=== PATIENT | female | born 1970 | race Caucasian/White ===

== ENCOUNTER 2021-08-08 10:18 | Outpatient (CLI) | payer BC, SELFPAY ==
--- NOTE | ~2021-08-08 | MM_ITS ---
EXAMINATION: MM scrn ute implant BI w jen HISTORY: Screening mammogram TECHNIQUE: Craniocaudal and mediolateral oblique 3-D tomosynthesis images with implant displacement a nd synthetic 2-D images were generated. Craniocaudal and mediolateral oblique views of the breasts wi thout implant displacement were obtained using full field digital mammography. CAD analysis was submi tted and interpreted. COMPARISON: 02/05/2019, 12/10/2017, 11/12/2016 BREAST PARENCHYMAL COMPOSITION: There are scattered areas of fibroglandular density. FINDINGS: There is no evidence of suspicious mass, calcification, or architectural distortion to sugg est malignancy in either breast. There has been no suspicious interval change. IMPRESSION: 1. No mammographic evidence of malignancy. 2. Recommend routine screening mammography in one year. BI-RADS Category 1: Negative Reviewed, dictated and finalized at location A. 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
== END 2021-08-08 10:19 | disposition home or self-care (01) ==
LOC: ANHIMG 10:21
PROVIDERS: PCP Nurse Practitioner Adult Health; Visit Provider Obstetrics & Gynecology
DX: Z12.31 Encounter for screening mammogram for malignant neoplasm of breast (principal)
CPT/HCPCS: 77063; 77067

== ENCOUNTER 2023-01-23 15:20 | Outpatient (CLI) | payer BC, SELFPAY ==
--- NOTE | ~2023-01-23 | MM_ITS ---
EXAMINATION: MM scrn ute implant BI w jen HISTORY: Screening mammogram TECHNIQUE: Craniocaudal and mediolateral oblique 3-D tomosynthesis images with implant displacement a nd synthetic 2-D images were generated. Craniocaudal and mediolateral oblique views of the breasts wi thout implant displacement were obtained using full field digital mammography. CAD analysis was submi tted and interpreted. COMPARISON: 08/08/2021, 02/05/2019, 12/10/2017 bilateral screening mammogram examinations BREAST PARENCHYMAL COMPOSITION: There are scattered areas of fibroglandular density. FINDINGS: Status post bilateral augmentation mammoplasty. There is a There are bladder is unremarkable There is no evidence of suspicious mass, calcification, or architec tural distortion to suggest malignancy in either breast. There has been no suspicious interval change . IMPRESSION: 1. No mammographic evidence of malignancy. 2. Recommend routine screening mammography in one year. BI-RADS Category 1: Negative Reviewed, dictated and finalized at location A.
== END 2023-01-23 15:21 | disposition home or self-care (01) ==
PROVIDERS: PCP Nurse Practitioner Adult Health; Visit Provider Obstetrics & Gynecology
DX: Z12.31 Encounter for screening mammogram for malignant neoplasm of breast (principal)
CPT/HCPCS: 77063; 77067

== ENCOUNTER 2023-02-03 10:16 | Outpatient (CLI) | payer BC, SELFPAY ==
[2023-02-03 19:17] LABS: Hemoglobin 14.1 g/dL (12.0-15.0); Mean Corpuscular HGB Conc 31.3 g/dl (32-36); Mean Corpuscular Hemoglobin 30.3 pg (26-34); Mean Corpuscular Volume 96.6 fl (80-100); Mean Platelet Volume 10.2 fl (7.4-10.4); Platelet Count Result 335 k/mm3 (150-375); Red Blood Count 4.66 M/mm3 (4.2-5.4); Red Cell Distribution Width 12.4 % (11.5-14.5)
[2023-02-03 19:55] LABS: Appearance Urine Turbid (Clear); Bacteria Urine 4+ /hpf; Bilirubin Urine Negative (Negative); Blood Urine Negative (Negative); Color Urine Yellow (Yellow); Glucose Urine UA Negative (Negative); Ketones Urine Negative (Negative); Leukocyte Esterase Ur 3+ LEU/UL (Negative); Nitrate Urine Positive (Negative); Non Pathogenic Casts 0-2; Protein Urine Negative (Negative); Specific Grav Ur 1.019 (1.001-1.035); Squamous Epithelial Cell Urine None seen /hpf (Few); Urobilinogen Urine 0.2 mg/dL (<2.0); WBC Urine >100 /hpf; pH Urine 7.5 (5.0-9.0)
[2023-02-03 20:04] LABS: Add Urine Microscopic? YES
[2023-02-03 21:11] LABS: Alanine Aminotransferase 19 U/L (6-35); Albumin Level 4.5 g/dL (3.5-5.1); Alkaline Phosphatase 69 U/L (38-126); Anion Gap 9 mmol/L (8-16); Aspartate Amino Transferase 47 U/L (14-36); Bilirubin,Total 0.7 mg/dL (0.2-1.3); Blood Urea Nitrogen 14 mg/dL (7-17); Calcium 9.5 mg/dL (8.4-10.2); Carbon Dioxide 25 mmol/L (22-30); Chloride 104 mmol/L (98-107); Cholesterol 163 mg/dL (0-200); Estimated Glomerular Filt Rate > 60; Glucose 90 mg/dL (65-110); HDL Direct 32 mg/dL; Sodium 138 mmol/L (137-145); Triglycerides 117 mg/dL (<150)
[2023-02-03 21:18] LABS: Vitamin D 25 Hydroxy 77.4 ng/mL
[2023-02-03 21:22] LABS: LDL Cholesterol Direct 92 mg/dL
[2023-02-03 21:38] LABS: Thyroid Stimulating Hormone 0.017 uIU/mL (0.465-4.680)
== END 2023-02-03 10:17 | disposition home or self-care (01) ==
PROVIDERS: PCP Nurse Practitioner Adult Health; Visit Provider Nurse Practitioner Adult Health
DX: R39.9 Unspecified symptoms and signs involving the genitourinary system (principal); Z13.9 Encounter for screening, unspecified; E55.9 Vitamin D deficiency, unspecified
CPT/HCPCS: 36415; 80053; 80061; 81001; 82306; 84443; 85027; 87077; 87086; 87186

== ENCOUNTER 2023-06-30 01:35 | Day surgery (SDC) | payer BC, SELFPAY ==
[2023-06-03 08:30] VITALS: BMI 25.7
--- NOTE | 2023-06-27 09:04 | SUR.PREOP ---
Patient called regarding upcoming procedure. Reviewed preop instructions, appointment times, and procedure prep.
[2023-06-30 07:28] VITALS: BP 118/76; PULSE 78; RESP 20; TEMP 36.6; O2SAT 98; BMI 25.5
[2023-06-30] MEDS: LACTATED RINGERS 1,000 ML 150 ML IV CONT (07:30)
--- NOTE | 2023-06-30 08:02 | WPDANESEPPF ---
Anes - Initial Pre Proc Eval Procedure: Operation Date: 06/30/23 08:30 Proposed Procedures p Screening Colonoscopy - Danie Farley MD Date/Time: 06/30/23 08:02 Surgeon: Danie Farley MD Pre Op Diagnosis: neoplasm screening Patient Data Age: 53 Gender: F Height: 1.65 m Weight: 69.6 kg Last Vital Signs Temp 36.6 C 06/30/23 07:28 Pulse 78 06/30/23 07:28 Resp 20 06/30/23 07:28 BP 118/76 06/30/23 07:28 Pulse Ox 98 06/30/23 07:28 O2 Del Method Room Air 06/30/23 07:28 Allergies Allergy/AdvReac Type Severity Reaction Status Date / Time Cephalosporins Allergy Mild SEVERE Verified 06/30/23 07:26 VOMITING ciprofloxacin Allergy Mild Blisters Verified 06/30/23 07:26 morphine Allergy Mild STATES Verified 06/30/23 07:26 MOTHER HAS SEVERE HALLUCINATIONS, SEVERE N/V oxycodone Allergy Mild Hives Verified 06/30/23 07:26 Quinolones Allergy Mild BLISTERY Verified 06/30/23 07:26 RASH cephalexin AdvReac Vomiting Verified 06/30/23 07:26 Home Medications Medication Instructions Recorded Confirmed Type cholecalciferol (vitamin D3) 250 250 mcg PO DAILY 04/18/21 06/03/23 History mcg (10,000 unit) capsule esterified estrogens 0.625 mg 2 mg PO DAILY 04/18/21 06/03/23 History tablet progesterone micronized 100 mg 300 mg PO QHS 04/18/21 06/03/23 History capsule spironolactone 50 mg tablet 50 mg PO DAILY 04/18/21 06/03/23 History thyroid (pork) 120 mg tablet See Rx Instructions PO DAILY 04/18/21 06/03/23 History ubrogepant 100 mg tablet (Ubrelvy) 100 mg PO ONCE 06/03/22 06/03/23 History Testosterone Cream 60 mg topical DAILY 02/03/23 History escitalopram oxalate 10 mg tablet 10 mg PO DAILY 02/03/23 06/03/23 History (Lexapro) sodium,potassium,mag sulfates 17.5 See Rx Instructions PO .COMPLEX 05/08/23 06/03/23 Rx gram-3.13 gram-1.6 gram oral soln #354 mL (Suprep Bowel Prep Kit) Patient hx anesthesia problems: other (slow to awaken) Family hx anesthesia problems: none Results Review: All pre-operative results and documents have been reviewed as part of the pre-operative evaluation. [facility] Past Medical History Medical History Asthma Fibromyalgia Interstitial cystitis Migraines Vaginal delivery x 2 Surgical History Surgical History History of bladder surgery History of breast augmentation History of elbow surgery History of laparoscopy History of total hysterectomy with bilateral salpingo-oophorectomy (BSO) Family History Family History Mother Hypertension Father Family history of hypercholesterolemia Hypertension Sibling Asthma Son Asthma Depression Daughter Depression Grandparent Malignant neoplasm of prostate Stomach cancer Other Family history of arthritis Family history of hearing loss Family history of hepatitis Family history of malignant neoplasm of ovary Family history of osteoporosis Family history of thyroid disease Social History Social History Smoking status: Never smoker Alcohol intake: never Substance use type: does not use Lack of Transportation: No Lack of Food: Never True Concerned About Future Housing: No Difficulty Paying Gas/Electric Bills: No Difficulty Paying for Meds: No Currently Unemployed: No Education: High School Diploma/GED Difficulty w/ Childcare or Family Care: No Living arrangements: with family Occupation/Education: occupation 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
--- NOTE | 2023-06-30 08:14 | PM.HPGS ---
History of Present Illness History of Present Illness Consent: Risks, benefits, and alternatives have been discussed and questions answered. Patient agrees to proceed with procedure. Chief complaint: neoplasm screening Narrative: oJan Cruz is a 53 year old female Presents for screening colonoscopy. Patient's current weight appetite and bowel movements are normal. Patient denies abdominal pain. She has had no bleeding. Family history is significant that her father had colon polyps. Review of Systems Review of Systems: Review of systems noncontributory. PMFSH Past Medical History Medical History Asthma Fibromyalgia Interstitial cystitis Migraines Vaginal delivery x 2 Surgical History Surgical History History of bladder surgery History of breast augmentation History of elbow surgery History of laparoscopy History of total hysterectomy with bilateral salpingo-oophorectomy (BSO) Family History Family History Mother Hypertension Father Family history of hypercholesterolemia Hypertension Sibling Asthma Son Asthma Depression Daughter Depression Grandparent Malignant neoplasm of prostate Stomach cancer Other Family history of arthritis Family history of hearing loss Family history of hepatitis Family history of malignant neoplasm of ovary Family history of osteoporosis Family history of thyroid disease Social History Social History Smoking status: Never smoker Alcohol intake: never Substance use type: does not use Lack of Transportation: No Lack of Food: Never True Concerned About Future Housing: No Difficulty Paying Gas/Electric Bills: No Difficulty Paying for Meds: No Currently Unemployed: No Education: High School Diploma/GED Difficulty w/ Childcare or Family Care: No Living arrangements: with family Occupation/Education: occupation 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 Spiritual care concerns: No Meds Home Medications and Allergies Home Medications Medication Instructions Recorded Confirmed Type cholecalciferol (vitamin D3) 250 250 mcg PO DAILY 04/18/21 06/03/23 History mcg (10,000 unit) capsule esterified estrogens 0.625 mg 2 mg PO DAILY 04/18/21 06/03/23 History tablet progesterone micronized 100 mg 300 mg PO QHS 04/18/21 06/03/23 History capsule spironolactone 50 mg tablet 50 mg PO DAILY 04/18/21 06/03/23 History thyroid (pork) 120 mg tablet See Rx Instructions PO DAILY 04/18/21 06/03/23 History ubrogepant 100 mg tablet (Ubrelvy) 100 mg PO ONCE 06/03/22 06/03/23 History Testosterone Cream 60 mg topical DAILY 02/03/23 History escitalopram oxalate 10 mg tablet 10 mg PO DAILY 02/03/23 06/03/23 History (Lexapro) sodium,potassium,mag sulfates 17.5 See Rx Instructions PO .COMPLEX 05/08/23 06/03/23 Rx gram-3.13 gram-1.6 gram oral soln #354 mL (Suprep Bowel Prep Kit) Allergies Allergy/AdvReac Type Severity Reaction Status Date / Time Cephalosporins Allergy Mild SEVERE Verified 06/30/23 07:26 VOMITING ciprofloxacin Allergy Mild Blisters Verified 06/30/23 07:26 morphine Allergy Mild STATES Verified 06/30/23 07:26 MOTHER HAS SEVERE HALLUCINATIONS, SEVERE N/V oxycodone Allergy Mild Hives Verified 06/30/23 07:26 Quinolones Allergy Mild BLISTERY Verified 06/30/23 07:26 RASH cephalexin AdvReac Vomiting Verified 06/30/23 07:26 Vital Signs Vital Signs - 24 hr 06/30/23 07:28 Temperature 97.8 F Pulse Rate 78 Respiratory Rate 20 Blood Pressure 118/76 Pulse Oximetry 98 Oxygen Delivery Room Air Exam Narrative: Physical exam reveals patient to be alert. Vital signs stable. HEENT exam is unremarkable. Lia
[2023-06-30 08:37] VITALS: BP 107/53; PULSE 70; RESP 20; O2SAT 97
[2023-06-30 08:47] VITALS: BP 108/71; PULSE 65; RESP 22; O2SAT 98
[2023-06-30 08:57] VITALS: BP 108/59; PULSE 62; RESP 17; O2SAT 100
== END 2023-06-30 09:13 | disposition home or self-care (01) ==
PROVIDERS: PCP Nurse Practitioner Adult Health; Visit Provider Internal Medicine Gastroenterology
PROC: 0DJD8ZZ Inspection of Lower Intestinal Tract, Via Natural or Artificial Opening Endoscopic (ICD-10-PCS; CPT 45378; principal; 2023-06-30 08:30)
DX: Z12.11 Encounter for screening for malignant neoplasm of colon (principal); K64.8 Other hemorrhoids; Z83.719 Family history of colon polyps, unspecified
CPT/HCPCS: 45378; J2704; J7120

== ENCOUNTER 2024-02-17 09:06 | Outpatient (CLI) | payer BC, SELFPAY ==
[2024-02-17 18:57] LABS: Hematocrit 44.1 % (37.0-47.0); Hemoglobin 14.2 g/dL (12.0-15.0); Mean Corpuscular HGB Conc 32.2 g/dl (32-36); Mean Corpuscular Hemoglobin 30.4 pg (26-34); Mean Corpuscular Volume 94.4 fl (80-100); Mean Platelet Volume 9.9 fl (7.4-10.4); Platelet Count Result 359 k/mm3 (150-375); Red Blood Count 4.67 M/mm3 (4.2-5.4); Red Cell Distribution Width 12.3 % (11.5-14.5); White Blood Count 7.5 K/mm3 (4.5-10.0)
[2024-02-17 19:30] LABS: Alanine Aminotransferase 32 U/L (6-35); Albumin Level 4.5 g/dL (3.5-5.1); Alkaline Phosphatase 79 U/L (38-126); Anion Gap 12 mmol/L (4-12); Aspartate Amino Transferase 83 U/L (14-36); Bilirubin,Total 0.6 mg/dL (0.2-1.3); Blood Urea Nitrogen 14 mg/dL (7-17); Calcium 9.1 mg/dL (8.4-10.2); Carbon Dioxide 22 mmol/L (22-30); Chloride 104 mmol/L (98-107); Cholesterol 172 mg/dL (0-200); Estimated Glomerular Filt Rate > 60; Glucose 94 mg/dL (65-110); HDL Direct 37 mg/dL; Potassium 3.9 mmol/L (3.4-5.0); Sodium 138 mmol/L (137-145); Triglycerides 115 mg/dL (<150)
[2024-02-17 19:41] LABS: LDL Cholesterol Direct 107 mg/dL
[2024-02-17 19:50] LABS: Vitamin D 25 Hydroxy 65.3 ng/mL
[2024-02-17 19:59] LABS: Thyroid Stimulating Hormone 0.507 uIU/mL (0.465-4.680)
== END 2024-02-17 09:07 | disposition home or self-care (01) ==
PROVIDERS: PCP Nurse Practitioner Adult Health; Visit Provider Nurse Practitioner Adult Health
DX: Z13.9 Encounter for screening, unspecified (principal); E55.9 Vitamin D deficiency, unspecified
CPT/HCPCS: 36415; 80053; 80061; 82306; 84443; 85027

== ENCOUNTER 2024-11-30 11:40 | Outpatient (CLI) | payer BC, SELFPAY ==
--- NOTE | ~2024-11-30 | MM_ITS ---
EXAMINATION: MM scrn ute implant BI w jen HISTORY: Screening mammogram TECHNIQUE: Craniocaudal and mediolateral oblique 3-D tomosynthesis images with implant displacement a nd synthetic 2-D images were generated. Craniocaudal and mediolateral oblique views of the breasts wi thout implant displacement were obtained using full field digital mammography. CAD analysis was submi tted and interpreted. COMPARISON: Comparison to multiple prior studies sequentially, with oldest reviewed study dated 09/07. BREAST PARENCHYMAL COMPOSITION: Not dense: There are scattered areas of fibroglandular density. FINDINGS: There is no evidence of suspicious mass, calcification, or architectural distortion to sugg est malignancy in either breast. There has been no suspicious interval change. IMPRESSION: 1. No mammographic evidence of malignancy. 2. Recommend routine screening mammography in one year. BI-RADS Category 1: Negative Reviewed, dictated and finalized at location B.
--- OUTSIDE RECORDS SUMMARY | 2024-11-30 11:45 | XMS_ITS | Encounter Summary ---
Author Organization [facility] Address [address] [place] [address] Care Team Providers Care Equity Holder Name Role Phone Bryan Whittaker MD Unavailable [phone] Dayna Skaggs APRN-DIRECTOR OF IN SERVICE EDUCATION Primary Care Provider + Encounter Details Date Type Department Care Team (Late st Contact Info) Description 05/30/2022 Lab Requisition [facility] [address] [place] [id number] [place] [address] Social History Tobacco Use Types Packs/Day Years Used Date Smoking Tobacco: Never Assessed Comments Unknown Sex and Gender Information Value Date Recorded Sex Assigned at Not on file Legal Sex Female 12:10 PM FACSIMILE OPERATOR Gender Identity Not on file Sexual Orientation Not on file documented as of this encounter Plan of Treatment Not on file documented as of this encounter Procedures Procedure Name Priority Date/Time Associated Diagnosis Comments DERMATOPATHOLOGY Routine 05/29/2022 12:0 0 AM FACSIMILE OPERATOR documented in this encounter Results * DERMATOPATHOLOGY (05/29/2022 12:00 AM FACSIMILE OPERATOR) Case Report Dermatopathology Report Case: [id number] Authorizing Provider: Lambert Herrera MD Collected: 05/29/2022 12:00 AM Ordering Location: [facility] Received: 05/30/2022 01:35 PM Pathologist: Starr Villafana MD Specimen: Skin, right cheek 1:08 PM [facility] Final Diagnosis Specimen A. SKIN, right cheek: VERRUCA VULGARIS WITH ASSOCIATED CHANGES OF PRURIGO NODULARIS (B07.8) 1:08 PM [facility] at [address]8 FACSIMILE OPERATOR Clinical History R/O BCC, HAK, AK, SCC, ISK 1:08 PM [facility] Gross Description Specimen A: Received is one formalin filled container labeled with the patient's name and designated right cheek. The specimen consists of a shave biopsy measuring [id number]. Jar 0. 1:08 PM [facility] Microscopic Description Specimen A. SKIN, right cheek: There is digitated epidermal hyperplasia, hypergranulosis, vacuolated granular layer cells, and compact hyperorthokeratosis . There is a dome-shaped portion of skin with psoriasiform epidermal hyperplasia, compact hyperkeratosis, and fibrosis of the papillary dermis associated with a superficial perivascular lymphohistiocytic infiltrate. 1:08 PM [facility] Disclaimer An external and internal positive and negative controls are appropriate for the histochemical, immunohistochemical and immunofluorescence stain(s) in this case (if any), except where stated explicitly. The performance characteristics of the stain(s) cited in this report were developed and its performance characteristic determined by the Dermatopathology Laboratory at [facility], directed by Dr. Nurys Villafana. These tests need not be, and therefore are not, approved by the [place] Food and Drug Administration. The tests are used for clinical purposes. Billing Codes Specimen Charges Stain Charges 44831 1 1:08 PM [facility] Embedded Images 1:08 PM [facility] Pathology/Cytolog y TISSUE SPECIMEN FROM SKIN / Unknown 05/29/2022 05/30/2022 1:35 PM FACSIMILE OPERATOR us Lambert Herrera MD LAB - PATHOLOGY/CYTOLOGY ORD ERABLES Final Result DERMATOPATHOLOGY LABORATORY [facility] - Department of Dermatology [address], [address] [phone] documented in this encounter Visit Diagnoses Not on filedocumented in this encounter Care Teams Equity Holder Relationship Specialty Start Date End Date Dayna Skaggs APRN-SAVAGE [address] [place] [address] [address] [place] [id number] PCP - General Nurse Practitioner 02/25/22 Bryan Whittaker MD Neurology 04/04/11 documented as of this encounter
--- OUTSIDE RECORDS SUMMARY | 2024-11-30 11:45 | XMS_ITS | Clinical Summary ---
Author Organization [facility] Facility Address [address] [place] [id number] Care Team Providers Care Media Technician Name Role Phone Unavailable Primary Care Provider Unavailabl e Medications spironolactone (ALDACTONE) 100 MG tablet TAKE 1 TABLET BY MOUTH ONCE DAILY DIRECTED 9 Active gentamicin-pred nisoLONE (Pred-G) 0.3-1 % ophthalmic drops Administer 1 drop into the right eye 3 (three) times a day 30 mL 1 2 Active gabapentin (Neurontin) 100 MG capsuleIndicati ons:Neuralgia Take 1 capsule (100 mg total) by mouth 1 (one) time each day 30 capsule 5 2 Active colchicine 0.6 MG tabletIndicatio ns:Pain in left thumb Take 2 tablets initially, the one tablet every 2 hours, max of 6 tablets total. 6 tablet 3 Active escitalopram (Lexapro) 10 MG tabletIndicatio ns:Anxiety disorder, not otherwise specified Take 1 tablet by mouth daily 30 tablet 5 3 Active Social History Tobacco Use Types Packs/Day Years Used Date Smoking Tobacco: Never Assessed Comments Unknown Sex and Gender Information Value Date Recorded Sex Assigned at Not on file Legal Sex Female 6:09 PM EDT Gender Identity Not on file Sexual Orientation Not on file Plan of Treatment Health Maintenance Due Date Last Done Comments Breast Cancer Screening 1970 Hepatitis B Vaccine (1 of 3 - 19+ 3-dose series) 01/19 Pneumococcal Vaccine: 50+ Years (1 of 2 - PCV) 989 Colorectal Cancer Screening: Annual FOBT 2019 Colorectal Cancer Screening: Colonoscopy 2019 Colorectal Cancer Screening: Sigmoidoscopy 2019 Influenza Vaccine (Season Ended) 2025
--- OUTSIDE RECORDS SUMMARY | 2024-11-30 11:46 | XMS_ITS | Clinical Summary ---
Author Organization [facility] Address [address] [place] [address] Care Team Providers Care Culinary Director Name Role Phone Cherie Noguera MD Primary Care Provider [phone] Allergies Active Allergy Reactions Criticality Noted Date Comments Cephalexin Nausea & Vomiting Low 03/28/2022 Only oral kelfex Ciprofloxacin Rash,Nausea & Vomiting Medium Reaction: Rash, , Codeine Headache Low 03/28/2022 Oxycodone Itching,Rash Medium Reaction: Rash, Oxycodone-Acetaminophen Unknown Medications spironolactone (ALDACTONE) 100 mg tablet 50 mg. 9 Active TESTOSTERONE MICRONIZED, BULK, MISC Apply topically daily 1 8 Active estrogen,carlos/ me-testosterone (ESTROGENS-METH YLTESTOSTERONE ORAL) Take 2 mg by mouth Active progesterone (PROMETRIUM) 100 mg capsule Take 300 mg by mouth daily Active cholecalciferol (VITAMIN D-3) 32750 unit capsule Take 5,000 Units by mouth daily Active thyroid (ARMOUR THYROID) 90 mg tablet Take 90 mg by mouth daily Active ubrogepant (UBRELVY) 100 mg tablet Take 100 mg by mouth as needed for migraine May repeat dose once in 2 hours if no relief. Do not exceed 2 doses in 24 hours. Active ascorbic acid (VITAMIN C) 500 mg tablet,chewable Take 1 tablet/chew tab (500 mg total) by mouth 2 (two) times a day 60 tablet/chew tab 2 Active HYDROcodone-leonard taminophen (NORCO) 5-325 mg per tabletIndicatio ns:Pain Take 1 tablet by mouth every 6 (six) hours as needed for pain 15 tablet 2 Active Additional Information Patient not taking.Reported on 04/19/2022 ondansetron (ZOFRAN) 4 mg tabletIndicatio ns:Prevention of Post-Operative Nausea and Vomiting Take 1 tablet (4 mg total) by mouth every 6 (six) hours as needed for nausea or vomiting 20 tablet 1 2 Active Additional Information Patient not taking.Reported on 04/19/2022 estradioL (ESTRACE) 0.01 % (0.1 mg/gram) vaginal cream estradiol 0 Active progesterone 100 mg vaginal suppository progesterone 0 Active cholecalciferol (VITAMIN D-3) 400 unit capsule Vitamin D3 5000 units daily 0 Active gabapentin (NEURONTIN) 100 mg capsule Take 100 mg by mouth daily 2 Active Active Problems Problem Noted Date Diagnosed Date Right lateral epicondylitis 03/16/2022 Overview (03/16/2022): Added automatically from request for surgery [id number] Cubital tunnel syndrome on right 03/16/2022 Overview (03/16/2022): Added automatically from request for surgery [id number] Medial epicondylitis of right elbow 03/16/2022 Overview (03/16/2022): Added automatically from request for surgery [id number] Itch 10/05/2010 Surgical History Surgery Date Site/Laterality Comments AUGMENTATION MAMMOPLASTY 1988 Breast Augmentation AUGMENTATION MAMMOPLASTY 2007 Breast Augmentation BLADDER PLICATION bladder plication HYSTERECTOMY 2005 Hysterectomy BLADDER SURGERY EXPLORATORY LAPAROTOMY endometriosis Medical History Medical History Date Comments Hx Other Medical Abnormal Heartb eat Hx Other Medical Neuropathy Endometritis Endometriosis Hx Other Medical Interstitial cy stitis Hx Other Medical Headache, migra ine Disorder of thyroid Thyroid dise ase Osteoarthritis Osteoarthritis Asthma Asthma Depression Depression Gastroesophageal reflux disease GERD Anemia Anemia Hx Other Medical 2004 abdominal expl oratory PONV (postoperative nausea and vomiting) Motion sickness Headache Hypothyroidism Delayed emergence from general anesthesia Family History Medical History Relation Name Comments Cancer Other 1 Family history of Cancer; Heart disease Other 2 Family history of Heart disease; Other Other 3 Family history of lung problems ; Hypertension Other 4 Family history of Hypertension; Arthritis Other 5 Family history of Arthritis; Blood Clot Other 6 Family history of Blood clots; Relation Name Status Comments Other 1 Other 2 Other 3 Other 4 Other 5 Other 6 Social History Tobacco Use Types Packs/Day Years Used Date Smoking Tobacco: Never Smokeless Tobacco: Never Tobacco Cessation:Counseling Given: Not Answered Alcohol Use Standard Drinks/Week Comments Yes 0 (1 standard drink = 0.6 oz pur e alcohol) AUDIT-C Answer Date Recorded Frequency of Alcohol Consumption Not on file 03/28/2022 Q2: How many drinks containi ng alcohol do you have on a typical day when you are drinking? Patient does not drink Frequency of Binge Drinking Not on file 03/14 Comments No Sex and Gender Information Value Date Recorded Sex Assigned at Not on file Legal Sex Female 12:21 AM COMMUNITY MENTAL HEALTH WORKER Gender Identity Not on file Sexual Orientation Not on file Obstetrics History Last Filed Vital Signs Vital Sign Reading Time Taken Comments Blood Pressure 144/94 06/20/2022 8:35 AM COMMUNITY MENTAL HEALTH WORKER Pulse 71 06/20/2022 8:35 AM COMMUNITY MENTAL HEALTH WORKER Temperature 36.1 C (97 F) 04/04/2022 2:16 PM CDT Respiratory Rate 18 04/04/2022 3:28 PM CDT Oxygen Saturation 98% 04/04/2022 3:28 PM CDT Inhaled Oxygen Concentration - - Weight 76.4 kg (168 lb 8 oz) 06/20/2022 8:35 AM COMMUNITY MENTAL HEALTH WORKER Height 165.1 cm (5' 5 ) 06/20/2022 8:35 AM COMMUNITY MENTAL HEALTH WORKER Body Mass Index 28.04 06/20/2022 8:35 AM COMMUNITY MENTAL HEALTH WORKER Plan of Treatment Health Maintenance Due Date Last Done Comments Breast Cancer Screening-Mammogram 1970 Colon Cancer Screening-Colonoscopy 1970 Depression Screening 1970 Hepatitis C Screening 1970 DTaP/Tdap/Td Vaccine (1 - Tdap) 1981 Hepatitis B Screening 01/20/1988 Regular Well Visit/Exam 18-64 01/20/1988 Zoster Vaccine (1 of 2) 01/20/2020 Influenza Vaccine (#1) 2024 Pneumococcal vaccine <65 Aged Out No longer eligible based on patient's age to complete this topic Insurance [employer]M ACCESS CHOICE [id number] CHO[facility] PLUS ANTHEM ACCESS CHOICE [employer] ACCESS CHOICE Care Teams Culinary Director Relationship Specialty Start Date End Date Cherie Noguera MD [address] [place] [address] [place] [address] PCP - General Family Medicine 12/05/20
--- OUTSIDE RECORDS SUMMARY | 2024-11-30 11:46 | XMS_ITS | Referral Summary ---
Author Organization [facility] Address [address] [place] [address] Care Team Providers Care Realty Loan Specialist Name Role Phone Cherie Noguera MD Primary Care Provider [phone]- [phone] Allergies Active Allergy Reactions Criticality Noted Date [...] by mouth daily Active cholecalciferol (VITAMIN D-3) 56460 unit capsule Take 5,000 Units by mouth [...] (03/16/2022): Added automatically from request for surgery [id number] Cubital tunnel syndrome on right 03/16/2022 Overview (03/16/2022): Added automatically from request for surgery [id number] Medial epicondylitis of right elbow 03/16/2022 Overview (03/16/2022): Added automatically from request for surgery [id number] Itch 10/05/2010 Social History Tobacco Use Types Packs/Day Years [...] you are drinking? Patient does not drink 2 Frequency of Binge Drinking Not on file 03/14 Comments No Sex and Gender Information Value Date Recorded Sex Assigned at Not on file Legal Sex Female 12:21 AM RESIDENTIAL CONCIERGE Gender Identity Not on file Sexual Orientation Not on file Last Filed Vital Signs Vital Sign Reading Time Taken Comments Blood Pressure 144/94 06/20/2022 8:35 AM RESIDENTIAL CONCIERGE Pulse 71 06/20/2022 8:35 AM RESIDENTIAL CONCIERGE Temperature 36.1 C (97 F) 04/04/2022 2:16 PM CDT Respiratory Rate 18 04/04/2022 3:28 PM CDT Oxygen Saturation 98% 04/04/2022 3:28 PM CDT Inhaled Oxygen Concentration - - Weight 76.4 kg (168 lb 8 oz) 06/20/2022 8:35 AM RESIDENTIAL CONCIERGE Height 165.1 cm (5' 5 ) 06/20/2022 8:35 AM RESIDENTIAL CONCIERGE Body Mass Index 28.04 06/20/2022 8:35 AM RESIDENTIAL CONCIERGE Plan of Treatment Not on file Insurance [facility] [employer] CHOICE CHOICE PLUS [facility] H[facility]/PPO Address: [address] [address] [place] [address] [employer]M ACCESS CHOICE AN[employer]M ACCESS CHOICE Care Teams Realty Loan Specialist Relationship Specialty Start Date End Date Cherie Noguera MD [address] [place] [address] [place] [address] PCP - General Family Medicine 12/05/20
--- OUTSIDE RECORDS SUMMARY | 2024-11-30 11:46 | XMS_ITS | Clinical Summary ---
Author Organization [facility] Address [address] [place] [address] Care Team Providers Care Rn Night Name Role Phone Bryan Whittaker MD Unavailable [phone] Dayna Skaggs APRN-[facility] Primary Care Provider + Source Comments [facility],non-owned Affiliates and Associated Physician Practices is amultiple site organization consisting of ambulatory clinics and hospital sitesin [place], [place], [place] and [place]. This disclosure is being madepursuant to the Care Everywhere program and may not contain all information available regarding this patient. Last updated 18.[facility] Allergies Active Allergy Reactions Criticality Noted Date Comments Ciprofloxacin 04/04/2011 Oxycodone-Acetaminophen 04/04/2011 Medications * Be aware that medications may not be up to date on this document. Alwaysverify current medications with the patient. Citalopram Hydrobromide (CELEXA PO) Take 25 mg by mouth at bedtime. Active Albuterol Sulfate (VENTOLIN HFA IN) Inhale 2 Puffs by mouth as needed. Active cetirizine (ZYRTEC) 10 MG tablet Take 10 mg by mouth at bedtime. Active Vitamin D3 2000 UNIT CAPS Take by mouth at bedtime. Active rizatriptan (MAXALT) 10 MG tablet Take 1 Tab by mouth once as needed (take one tablet at onset of headache may repeat after 2 hours up to 30 mg total per 24 hours). 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 Gender Identity Not on file Sexual Orientation Not on file Last Filed Vital Signs Vital Sign Reading Time Taken Comments Blood Pressure 112/82 04/04/2011 12:47 PM CDT Pulse 80 04/04/2011 12:47 PM CDT Temperature - - Respiratory Rate 12 04/04/2011 12:47 PM CDT Oxygen Saturation - - Inhaled Oxygen Concentration - - Weight - - Height - - Body Mass Index - - Plan of Treatment Health Maintenance Due Date Last Done Comments COLOGUARD (AGES 45-75) - COL ON CA SCREENING 1970 COLON MONITORING 1970 COLONOSCOPY - COLON CA SCREENING 1970 CT COLONOGRAPHY - COLON CA SCREENING 1970 Colorectal Cancer Screening 1970 FIT - COLON CA SCREENING 1970 FLEX SIG - COLON CA SCREENING 1970 LIPID TESTING 1970 MAMMOGRAM 1970 PAP SMEAR 1970 HIV SCREENING 1985 HEPATITIS C SCREENING 01/15/1988 DTAP/TDAP/TD VACCINES (1 - Tdap) 1989 HEPATITIS B VACCINE (1 of 3 - 19+ 3-dose series) 1989 PNEUMOCOCCAL VACCINE 50+ (1 of 1 - PCV) 01/20/2020 ZOSTER VACCINE (1 of 2) 01/20/2020 COVID-19 VACCINE (1 - 2023-2 5 season) 2024 DEPRESSION SCREENING 07/14/2024 INFLUENZA VACCINE (Season Ended) 2025 HIB VACCINE Aged Out No longer eligi ble based on patient's age to complete this topic HPV VACCINE Aged Out No longer eligi ble based on patient's age to complete this topic MENINGOCOCCAL (Group B) VACC INE SHARED DECISION-MAKING Aged Out No longer eligibl e based on patient's age to complete this topic MENINGOCOCCAL GROUPS A/C/Y/W VACCINE Aged Out No longer eligible b ased on patient's age to complete this topic Insurance /BLUE BLUE CROSS BLUE [facility] ANTHEM ANTHEM Care Teams Rn Night Relationship Specialty Start Date End Date Dayna Skaggs APRN-WOODWORKING MACHINE SETTER [address] [place] [address] PCP - General Nurse Practitioner 02/25/22 Bryan Whittaker MD Neurology 04/04/11
== END 2024-11-30 11:41 | disposition home or self-care (01) ==
LOC: CHSIMG 11:42
PROVIDERS: PCP Nurse Practitioner Adult Health; Visit Provider Nurse Practitioner Adult Health
DX: Z12.31 Encounter for screening mammogram for malignant neoplasm of breast (principal)
CPT/HCPCS: 77063; 77067

== ENCOUNTER 2025-02-26 07:41 | Outpatient (CLI) | payer BC, SELFPAY ==
--- OUTSIDE RECORDS SUMMARY | 2025-02-26 07:46 | XMS_ITS | Clinical Summary ---
Author Organization [facility] Address [address] [place] [address] Phone Care Team Providers Care Solar Design Engineer Name Role Phone Provider, None Primary Care Provider Unavailabl e Social History Tobacco Use Types Packs/Day Years Used Date Smoking Tobacco: Never Assessed Comments Unknown Sex and Gender Information Value Date Recorded Sex Assigned at Not on file Legal Sex Female 11:21 PM CDT Gender Identity Not on file Sexual Orientation Not on file Plan of Treatment Health Maintenance Due Date Last Done Comments Hepatitis C Virus (HCV) Screening 1970 TdaP Immunization 1970 Hepatitis B Immunization (1 of 3 - 19+ 3-dose series) 1989 Pap Smear 1991 Cervical Cancer Screening (CCS) 01/20/2000 HPV/Cotest 01/20/2000 Cologuard 2015 Colonoscopy 2015 Colorectal Cancer Screening 2015 Immunochemical Fecal Occult Blood 2015 Pneumococcal Immunization (5 0+ years) (1 of 1 - PCV) 01/20/2020 Zoster Immunization (1 of 2) 01/20/2020 SARS-COV-2 Immunization (3 - 2023- season) 2024 08/24/2020, 07/27/2020 Influenza Immunization (#1) 2025 Respiratory Syncytial Virus (RSV) Immunization (Adult) (1 - 1-dose 75+ series) 2045 Human Papillomavirus (HPV) Immunization Aged Out No longer eligible b ased on patient's age to complete this topic Meningococcal Immunization (ACWY) Aged Out No longer eligible b ased on patient's age to complete this topic Rotavirus Immunization Aged Out No lo nger eligible based on patient's age to complete this topic Care Teams Solar Design Engineer Relationship Specialty Start Date End Date Provider, None DILEEP PCP - General 01/05/18
--- OUTSIDE RECORDS SUMMARY | 2025-02-26 07:46 | XMS_ITS | Encounter Summary ---
Author Organization [facility] Address [address] [place] [address] Phone Care Team Providers Care Reinforcing Steel Erector Name Role Phone Unavailable Primary Care Provider Unavailabl e Encounter Details Date Type Department Care Team (Late st Contact Info) Description 02/25/2025 Orders Only [facility] [address] [place] [address] Mando Jefferson MD [address] [place] [address] Urinary tract infectious disease (Primary Dx) Social History Tobacco Use Types Packs/Day Years Used Date Smoking Tobacco: Never Assessed Comments Unknown Sex and Gender Information Value Date Recorded Sex Assigned at Not on file Legal Sex Female 6:09 PM EDT Gender Identity Not on file Sexual Orientation Not on file documented as of this encounter Plan of Treatment Scheduled Orders Name Type Priority Associated Diagnoses Orde r Schedule Urinalysis with microscopic Lab Routine Urinary tract infectious disease Expected: 02/25/2025, Expires: 03/28/2026 Urine culture Lab Routine Urinary tract infectious disease Expected: 02/25/2025, Expires: 03/28/2026 documented as of this encounter Visit Diagnoses Diagnosis Urinary tract infectious disease- Primary documented in this encounter
--- OUTSIDE RECORDS SUMMARY | 2025-02-26 07:46 | XMS_ITS | Encounter Summary ---
Author Organization [facility] Address [address] [place] [address] Care Team Providers Care Molecular Modeler Name Role Phone Bryan Whittaker MD Unavailable [phone] Dayna Skaggs APRN-SUPERVISOR IRRIGATION Primary Care Provider + Encounter Details Date Type Department Care Team (Late st Contact Info) Description 05/30/2022 Lab Requisition [facility] [address] [place] [address] [place] [address] Social History Tobacco Use Types Packs/Day Years Used Date Smoking Tobacco: Never Assessed Comments Unknown Sex and Gender Information Value Date Recorded Sex Assigned at Not on file 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 Female 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 Gender Identity Not on file Sexual Orientation Not on file documented as of this encounter Plan of Treatment Not on file documented as of this encounter Procedures Procedure Name Priority Date/Time Associated Diagnosis Comments DERMATOPATHOLOGY Routine 05/29/2022 12:0 0 AM 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 documented in this encounter Results * DERMATOPATHOLOGY (05/29/2022 12:00 AM 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) Case Report Dermatopathology Report Case: [id number] Authorizing Provider: Lambert Herrera MD Collected: 05/29/2022 12:00 AM Ordering Location: [facility] Lab Received: 05/30/2022 01:35 PM Pathologist: Starr Villafana MD Specimen: Skin, right cheek 1:08 PM [facility] DERMATOPATHOLOGY [facility]ORATORY Final Diagnosis Specimen A. SKIN, right cheek: VERRUCA VULGARIS WITH ASSOCIATED CHANGES OF PRURIGO NODULARIS (B07.8) 1:08 PM [facility] DERMATOPATHOLOGY LABORATORY at [address]8 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 Clinical History R/O BCC, HAK, AK, SCC, ISK 1:08 PM [facility] DERMATOPATHOLOGY [facility]OR[facility] Gross Description Specimen A: Received is one formalin filled container labeled with the patient's name and designated right cheek. The specimen consists of a shave biopsy measuring 2m5t6de. Jar 0. 1:08 PM [facility] DERMATOPATHOLOGY [facility]OR[facility]ORY Microscopic Description Specimen A. SKIN, right cheek: There is digitated epidermal hyperplasia, hypergranulosis, vacuolated granular layer cells, and compact hyperorthokeratosis . There is a dome-shaped portion of skin with psoriasiform epidermal hyperplasia, compact hyperkeratosis, and fibrosis of the papillary dermis associated with a superficial perivascular lymphohistiocytic infiltrate. 1:08 PM [facility] DERMATOPATHOLOGY [facility]ORATORY Disclaimer An external and internal positive and negative controls are appropriate for the histochemical, immunohistochemical and immunofluorescence stain(s) in this case (if any), except where stated explicitly. The performance characteristics of the stain(s) cited in this report were developed and its performance characteristic determined by the Dermatopathology Laboratory at [facility], directed by Dr. Nurys Villafana. These tests need not be, and therefore are not, approved by the [place] Food and Drug Administration. The tests are used for clinical purposes. Billing Codes Specimen Charges Stain Charges 08563 1 1:08 PM [facility] DERMATOPATHOLOGY LABORATORY Embedded Images 1:08 PM [facility] DERMATOPATHOLOGY [facility]ORATORY Pathology/Cytolog y TISSUE SPECIMEN FROM SKIN / Unknown 05/29/2022 05/30/2022 1:35 PM 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 us Lambert Herrera MD LAB - PATHOLOGY/CYTOLOGY ORD ERABLES Final Result DERMATOPATHOLOGY LABORATORY [facility] - Department of Dermatology [address], [address] [phone] documented in this encounter Visit Diagnoses Not on filedocumented in this encounter Care Teams Molecular Modeler Relationship Specialty Start Date End Date Dayna Skaggs APRN-SAVAGE [address] [place] [address] [address] [place] [address] PCP - General Nurse Practitioner 02/25/22 Bryan Whittaker MD Neurology 04/04/11 documented as of this encounter
--- OUTSIDE RECORDS SUMMARY | 2025-02-26 07:46 | XMS_ITS | Continuity of Care Document ---
Author Organization [facility] Address [address] [address] Phone Care Team Providers Care Draft Roller Picker Name Role Phone Arielle TONYTeresa Unavailable Unavailable Procedures Procedure Date Therapeutic Activities Neuromuscular Re-Ed Therapeutic Exercise Hot or Cold Pack Therapeutic Activities Neuromuscular Re-Ed Therapeutic Exercise Manual Therapy Hot or Cold Pack Progress Note Therapeutic Activities Neuromuscular Re-Ed Therapeutic Exercise Manual Therapy Hot or Cold Pack Therapeutic Activities Neuromuscular Re-Ed Therapeutic Exercise Manual Therapy Hot or Cold Pack Therapeutic Activities Neuromuscular Re-Ed Therapeutic Exercise Manual Therapy Hot or Cold Pack Therapeutic Activities Neuromuscular Re-Ed Therapeutic Exercise Manual Therapy Hot or Cold Pack Therapeutic Activities Neuromuscular Re-Ed Manual Therapy Therapeutic Exercise Hot or Cold Pack Therapeutic Activities Neuromuscular Re-Ed Therapeutic Exercise Manual Therapy Hot or Cold Pack Therapeutic Activities Therapeutic Exercise Neuromuscular Re-Ed Manual Therapy Hot or Cold Pack Progress Note Therapeutic Activities Neuromuscular Re-Ed Therapeutic Exercise Manual Therapy Hot or Cold Pack Therapeutic Activities Neuromuscular Re-Ed Manual Therapy Therapeutic Exercise Hot or Cold Pack OT Evaluation Moderate Complexity Therapeutic Activities Neuromuscular Re-Ed Manual Therapy Hot or Cold Pack Advance Directives Directive Yes / No Effective Date File Name No Information Encounters Encounter Description Practice Location Reason(s) For Visit Diagnoses Date Provider Providers Copied on Encounter [facility], [id number], tel:[phone] [place] No Information 2 Arielle Moore. . Referring Provider: Roxi Gutiérrez [address] [place] [address] [address], [place], [address]. tel:[phone] [facility] [address] [facility], [place], [id number], [place] tel:[phone] [place] No Information 2 Arielle Moore. . Referring Provider: Roxi Gutiérrez [address] [place] [address] [address], [place], [address]. tel:[phone] [facility], [place], [place], [id number], tel:[phone] [place] No Information Jun- 2 Arielle Teresa. . Referring Provider: Roxi Gutiérrez, [address] [facility] [address], [place], [address]. tel:[phone] [facility], [address], [place], [place], [id number], [place] tel:[phone] [place] No Information Dec-0 - 2 Arielle Teresa. . Referring Provider: Roxi Gutiérrez R[address] [facility] [address], [place], [address]. tel:[phone] [facility], [address], [place], [place], [id number], [place] tel:[phone] [place] No Information Nov-2 2 Arielle Teresa. . Referring Provider: Roxi Gutiérrez [address] [facility] [address], [place], [address]. tel:[phone] [facility], [address], [place], [place], [id number], [place] tel:[phone] [place] No Information Nov-1 2 Cecilio Mattea. . Referring Provider: oRxi Gutiérrez [address] [facility] [address], [place], [address]. tel:[phone] [facility], [address], [place], [place], [address], [place] tel:[phone] [place] No Information Nov-0 2 Arielle Teresa. . Referring Provider: Roxi Gutiérrez [address] [facility] [address], [place], [address]. tel:[phone] [facility], [address], [place], [place], [address], [place] tel:[phone] [place] No Information Nov-0 2 Arielle Teresa. . Referring Provider: Roxi Gutiérrez [address] [facility] [address], [place], [address]. tel:[phone] [facility], [address], [place], [address], [place] tel:[phone] [place] No Information 2 Arielle Teresa. . Referring Provider: Roxi Gutiérrez, [address] [facility] [address], [place], [address]. tel:[phone] [facility] [address] [facility] [address], [place], [place], [id number], tel:[phone] [place] No Information 2 Arielle Teresa. . Referring Provider: Roxi Gutiérrez, [address] [facility] [address], [place], [address]. tel:[phone] [facility] [address] [facility] [address], [place], [place], [id number], tel:[phone] [place] No Information 2 Arielle Teresa. . Referring Provider: Roxi Gutiérrez [address] [place] [address] [address], [place], [address]. tel:[phone] [facility] [address] [facility] [address], [place], [place], [id number], tel:[phone] [place] No Information 2 Arielle Teresa. . Referring Provider: Roxi Gutiérrez, [address] [place] [address] [address], [place], [address]. tel:[phone] Family History Family Member Type Diagnosis Age At Onset No Information Payers Payer name Insurance type Covered alliance party ID Lauri fernandez(s) [facility] [id number] Social History Type Description Quantity Date Captured Comments Sex Female Smoking Status No Information Chief Complaint And Reason For Visit No Information Reason For Referral Reason For Referral No Information History Of Present Illness Encounter Date Complaint History Of Prese nt Illness No Information Functional Status Date Functional Assessmen t No Information Instructions Date Instruction Additional Infor mation Prescribed activity/exercise edu cation Related to Overweight Dietary needs education Related to Overweight Assessments Type Assessment Date No Information Patient Care Teams Name Effective Dates (start - stop) Status Members No Information
--- OUTSIDE RECORDS SUMMARY | 2025-02-26 07:46 | XMS_ITS | Clinical Summary ---
Author Organization [facility] Address [address] [facility] [address] [place] [address] Care Team Providers Care Boom Truck Driver Name Role Phone Unavailable Primary Care Provider [...] mouth daily 30 tablet 5 3 Active Encounters Date Type Department Care Team Description 02/25/2025 Orders Only [facility] [address] [facility] [address] [place] [address] Mando Jefferson MD Urinary tract infectious disease (Primary Dx) from Last 3 Months Social History Tobacco Use Types Packs/Day Years [...] Colorectal Cancer Screening: Sigmoidoscopy 2019 Influenza Vaccine (#1) 2025
--- OUTSIDE RECORDS SUMMARY | 2025-02-26 07:46 | XMS_ITS | Clinical Summary ---
Author Organization [facility] Address [address] [facility] [place] [address] Care Team Providers Care Production Material Coordinator Name Role Phone Bryan Whittaker MD Unavailable [phone] Dayna Skaggs APRN-[facility] Primary Care Provider + Source Comments [facility],non-owned Affiliates and Associated Physician Practices is amultiple site organization consisting of ambulatory clinics and hospital sitesin [place], [place], [place] and [place]. This disclosure is being madepursuant to the Care Everywhere program and may not contain all information available regarding this patient. 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 Gender Identity Not on file Sexual Orientation [...] SCREENING 1970 LIPID TESTING 1970 MAMMOGRAM 1970 HIV SCREENING 1985 HEPATITIS C SCREENING 01/15/1988 DTAP/TDAP/TD VACCINES (1 - Tdap) 1989 HEPATITIS B VACCINE (1 of 3 - 19+ 3-dose series) 1989 PAP SMEAR 1991 PNEUMOCOCCAL VACCINE 50+ (1 of 1 - PCV) 01/20/2020 ZOSTER VACCINE (1 of 2) 01/20/2020 COVID-19 VACCINE (1 - 2023-2 5 season) 2024 DEPRESSION SCREENING 07/14/2024 INFLUENZA VACCINE (#1) 2025 HIB VACCINE Aged Out No longer [...] this topic Insurance /BLUE BLUE CROSS BLUE [facility] ANTHEM ANTHEM Care Teams Production Material Coordinator Relationship Specialty Start Date End Date Dayna Skaggs APRN-CHECK SERVICES CLERK [address] [place] [address] PCP - General Nurse Practitioner 02/25/22 Bryan Whittaker MD Neurology 04/04/11
--- OUTSIDE RECORDS SUMMARY | 2025-02-26 07:47 | XMS_ITS | Clinical Summary ---
Author Organization [facility] Address [address] [place] [address] Care Team Providers Care Deicer Repairer Name Role Phone Cherie Noguera MD Primary Care Provider [phone] Allergies Active Allergy Reactions Criticality Noted Date [...] by mouth daily Active cholecalciferol (VITAMIN D-3) 11566 unit capsule Take 5,000 Units by mouth [...] (03/16/2022): Added automatically from request for surgery [id number] Cubital tunnel syndrome on right 03/16/2022 Overview (03/16/2022): Added automatically from request for surgery [id number] Medial epicondylitis of right elbow 03/16/2022 Overview (03/16/2022): Added automatically from request for surgery [id number] Itch 10/05/2010 Surgical History Surgery Date Site/Laterality Comments AUGMENTATION MAMMOPLASTY 1987 Breast Augmentation AUGMENTATION MAMMOPLASTY 2007 Breast Augmentation [...] Other Other 3 Family history of lung problems; Hypertension Other 4 Family history of Hypertension; [...] on file Legal Sex Female 12:21 AM BINGO FLOATER Gender Identity Not on file Sexual Orientation Not on file Obstetrics History Last Filed Vital Signs Vital Sign Reading Time Taken Comments Blood Pressure 144/94 06/20/2022 8:35 AM BINGO FLOATER Pulse 71 06/20/2022 8:35 AM BINGO FLOATER Temperature 36.1 C (97 F) 04/04/2022 2:16 PM CDT Respiratory Rate 18 04/04/2022 3:28 PM CDT Oxygen Saturation 98% 04/04/2022 3:28 PM CDT Inhaled Oxygen Concentration - - Weight 76.4 kg (168 lb 8 oz) 06/20/2022 8:35 AM BINGO FLOATER Height 165.1 cm (5' 5) 06/20/2022 8:35 AM BINGO FLOATER Body Mass Index 28.04 06/20/2022 8:35 AM BINGO FLOATER Plan of Treatment Health Maintenance Due Date Last Done Comments Breast Cancer Screening-Mammogram 1970 Colon Cancer Screening-Colonoscopy 1970 Depression Screening 1970 Hepatitis C Screening 1970 DTaP/Tdap/Td Vaccine (1 - Tdap) 1981 Hepatitis B Screening 01/20/1988 Regular Well Visit/Exam 18-64 01/20/1988 Zoster Vaccine (1 of 2) 01/20/2020 Influenza Vaccine (#1) 2025 Pneumococcal vaccine <65 Aged Out No longer eligible based on patient's age to complete this topic Insurance ANTHEM ACCESS CHOICE [facility] CHOICE PLUS ANTHEM ACCESS CHOICE [facility] ACCESS CHOICE Care Teams Deicer Repairer Relationship Specialty Start Date End Date Cherie Noguera MD [address] [place] [address] [place] [address] PCP - General Family Medicine 12/05/20
[2025-02-26 09:11] LABS: Add Urine Microscopic? YES; Appearance Urine Turbid (Clear); Glucose Urine UA Negative (Negative); Leukocyte Esterase Ur 2+ LEU/UL (Negative); Nitrate Urine Negative (Negative); Specific Grav Ur 1.034 (1.001-1.035)
== END 2025-02-26 07:42 | disposition home or self-care (01) ==
LOC: ANHLAB 07:44
PROVIDERS: PCP Nurse Practitioner Adult Health; Visit Provider Internal Medicine Nephrology
DX: N39.0 Urinary tract infection, site not specified (principal)
CPT/HCPCS: 81001; 87086

== ENCOUNTER 2025-03-03 08:18 | Outpatient (CLI) | payer BC, SELFPAY ==
--- OUTSIDE RECORDS SUMMARY | 2025-03-03 08:31 | XMS_ITS | Clinical Summary ---
Author Organization [facility] Address [address] [facility] [address] [place] [address] Care Team Providers Care Director Mission Name Role Phone Unavailable Primary Care Provider [...] Encounters Date Type Department Care Team Description 02/28/2025 Documentation Only [facility] [address] [place] [address] Manod Jefferson MD 02/25/2025 Orders Only [facility] [address] [place] [id number] Mando Jefferson MD Urinary tract infectious disease [...]
--- OUTSIDE RECORDS SUMMARY | 2025-03-03 08:31 | XMS_ITS | Clinical Summary ---
Author Organization [facility] Address [address] [place] [address] Care Team Providers Care Precision Lens Polisher Name Role Phone Bryan Whittaker MD Unavailable [phone] Dayna Skaggs APRN-[facility] Primary Care Provider + Source Comments [facility],non-owned Affiliates and Associated Physician Practices is amultiple site organization consisting of ambulatory clinics and hospital sitesin [place] and [place]. This disclosure is being madepursuant to the Care Everywhere program and may not contain all information available regarding this patient. Last updated 18.[facility] Allergies Active Allergy Reactions Criticality Noted [...] on file Legal Sex Female 12:10 PM SHADE MAKER Gender Identity Not on file Sexual Orientation [...] this topic Insurance /BLUE BLUE CROSS BLUE [facility] ANTHEM ANTHEM Care Teams Precision Lens Polisher Relationship Specialty Start Date End Date Dayna Skaggs APRN-OCCUPATIONAL HEALTH SPECIALIST [address] [place] [address] PCP - General Nurse Practitioner 02/25/22 Bryan Whittaker MD Neurology 04/04/11
--- OUTSIDE RECORDS SUMMARY | 2025-03-03 08:31 | XMS_ITS | Clinical Summary ---
Author Organization [facility] Address [address] [place] [address] Phone Care Team Providers Care Web Press Operator Name Role Phone Provider, None Primary Care [...] age to complete this topic Care Teams Web Press Operator Relationship Specialty Start Date End Date Provider, None DILEEP PCP - General 01/05/18
--- OUTSIDE RECORDS SUMMARY | 2025-03-03 08:31 | XMS_ITS | Encounter Summary ---
Author Organization [facility] Address [address] [place] [address] Care Team Providers Care Laborer Chemical Processing Name Role Phone Bryan Whittaker MD Unavailable Dayna Skaggs APRN-CREASING MACHINE OPERATOR Primary Care Provider + Encounter Details Date Type Department Care Team (Late st Contact Info) Description 05/30/2022 Lab Requisition [facility] D[facility] [address] [place] [phone] [place] [address] Social History Tobacco Use Types Packs/Day Years Used Date Smoking Tobacco: Never Assessed Comments Unknown Sex and Gender Information Value Date Recorded Sex Assigned at Not on file Legal Sex Female 12:10 PM COUNTER MAKER Gender Identity Not on file Sexual Orientation Not on file documented as of this encounter Plan of Treatment Not on file documented as of this encounter Procedures Procedure Name Priority Date/Time Associated Diagnosis Comments DERMATOPATHOLOGY Routine 05/29/2022 12:0 0 AM COUNTER MAKER documented in this encounter Results * DERMATOPATHOLOGY (05/29/2022 12:00 AM COUNTER MAKER) Case Report Dermatopathology Report Case: [id number] Authorizing Provider: Lambert Herrera MD Collected: 05/29/2022 12:00 AM Ordering Location: [facility] Lab Received: 05/30/2022 01:35 PM Pathologist: Starr Villafana MD Specimen: Skin, right cheek 1:08 PM [facility] DERMATOPATHOLOGY LABORATORY Final Diagnosis Specimen A. SKIN, right cheek: VERRUCA VULGARIS WITH ASSOCIATED CHANGES OF PRURIGO NODULARIS (B07.8) 1:08 PM [facility] DERMATOPATHOLOGY LABORATORY at [address] COUNTER MAKER Clinical History R/O BCC, HAK, AK, SCC, ISK 1:08 PM [facility] DERMATOPATHOLOGY LABORATORY Gross Description Specimen A: Received is one formalin filled container labeled with the patient's name and designated right cheek. The specimen consists of a shave biopsy measuring 5h2x8ve. Jar 0. 1:08 PM [facility] DERMATOPATHOLOGY LABORATORY Microscopic Description Specimen A. SKIN, right cheek: There is digitated epidermal hyperplasia, hypergranulosis, vacuolated granular layer cells, and compact hyperorthokeratosis . There is a dome-shaped portion of skin with psoriasiform epidermal hyperplasia, compact hyperkeratosis, and fibrosis of the papillary dermis associated with a superficial perivascular lymphohistiocytic infiltrate. 1:08 PM [facility] DERMATOPATHOLOGY LABORATORY Disclaimer An external and internal positive and negative controls are appropriate for the histochemical, immunohistochemical and immunofluorescence stain(s) in this case (if any), except where stated explicitly. The performance characteristics of the stain(s) cited in this report were developed and its performance characteristic determined by the Dermatopathology Laboratory at [facility], directed by Dr. Nurys Villafana. These tests need not be, and therefore are not, approved by the [place] Food and Drug Administration. The tests are used for clinical purposes. Billing Codes Specimen Charges Stain Charges 85703 1 1:08 PM [facility] DERMATOPATHOLOGY LABORATORY Embedded Images 1:08 PM [facility] DERMATOPATHOLOGY LABORATORY Pathology/Cytolog y TISSUE SPECIMEN FROM SKIN / Unknown 05/29/2022 05/30/2022 1:35 PM COUNTER MAKER us Lambert Herrera MD LAB - PATHOLOGY/CYTOLOGY ORD ERABLES Final Result DERMATOPATHOLOGY LABORATORY [facility] - Department of Dermatology [address], [address] [phone] documented in this encounter Visit Diagnoses Not on filedocumented in this encounter Care Teams Laborer Chemical Processing Relationship Specialty Start Date End Date Dayna Skaggs APRN-SAVAGE [address] [place] [address] [address] [place] [phone] PCP - General Nurse Practitioner 02/25/22 Bryan hWittaker MD Neurology 04/04/11 documented as of this encounter
--- OUTSIDE RECORDS SUMMARY | 2025-03-03 08:32 | XMS_ITS | Clinical Summary ---
Author Organization [facility] Address [address] [place] [address] Care Team Providers Care It Desktop Support Specialist Name Role Phone Cherie Noguera MD Primary Care Provider [phone] Allergies Active Allergy Reactions Criticality Noted Date [...] by mouth daily Active cholecalciferol (VITAMIN D-3) 05249 unit capsule Take 5,000 Units by mouth [...] (03/16/2022): Added automatically from request for surgery [id number] Cubital tunnel syndrome on right 03/16/2022 Overview (03/16/2022): Added automatically from request for surgery [id number] Medial epicondylitis of right elbow 03/16/2022 Overview (03/16/2022): Added automatically from request for surgery [id number] Itch 10/05/2010 Encounters Date Type Department Care Team Description 02/28/2025 8:30 AM CDT Office Visit [facility] Orthopedics and Sports Medicine [address] [place] [address] [place] [phone] Roxi Gutiérrez PA Traumatic incomplete tear of left rotator cuff, initial encounter (Primary Dx) 02/28/2025 7:37 AM CDT - 02/28/2025 11:59 PM CDT Hospital Encounter [facility] Orthopedics and Sports Medicine [address] [place] [address] [address] [place] [address] Arrived Discharge Disposition: Discharge to home or self care from Last 3 Months Surgical History Surgery Date Site/Laterality Comments AUGMENTATION MAMMOPLASTY 1987 Breast Augmentation AUGMENTATION MAMMOPLASTY 2006 Breast Augmentation BLADDER PLICATION bladder plication HYSTERECTOMY [...] on file Legal Sex Female 12:21 AM POLITICAL CONSULTANT Gender Identity Not on file Sexual Orientation Not on file Obstetrics History Last Filed Vital Signs Vital Sign Reading Time Taken Comments Blood Pressure 120/76 02/28/2025 8:18 AM CDT Pulse 65 02/28/2025 8:18 AM CDT Temperature 36.1 C (97 F) 04/04/2022 2:16 PM CDT Respiratory Rate 18 04/04/2022 3:28 PM CDT Oxygen Saturation 98% 04/04/2022 3:28 PM CDT Inhaled Oxygen Concentration - - Weight 77.6 kg (171 lb) 02/28/2025 8:18 AM CDT Height 165.1 cm (5' 5) 02/28/2025 8:18 AM CDT Body Mass Index 28.46 02/28/2025 8:18 AM CDT Plan of Treatment Health Maintenance Due Date [...] on patient's age to complete this topic Procedures Procedure Name Priority Date/Time Associated Diagnosis Comments XR SHOULDER LEFT 2 OR MORE VIEWS Routine 02/28/2025 8:10 AM CDT Left shoulder pain, unspecified chronicity from Last 3 Months Results * XR Shoulder Left 2 or More Views (02/28/2025 8:10 AM CDT) Anatomical Region Laterality Modality Upper Extremities, Shoulder Left Digi adiel Radiography Narrative 02/28/2025 8:14 AM CDT X-rays of the left shoulder are viewed and interpreted in clinic today. These demonstrate no fracture, subluxation/dislocation, notable degenerative changes, or osseous abnormality. Glenohumeral and acromioclavicular joint spaces are well maintained. Roxi RAZO IMG XR PROCEDURES Final Result from Last 3 Months Insurance ION ACCESS CHOICE [facility] CHOICE PLUS [facility] HMO/PPO Address: [address] [address] [place] [address] ANTHEM ACCESS CHOICE ANTHEM ACCESS CHOICE Care Teams It Desktop Support Specialist Relationship Specialty Start Date End Date Cherie Noguera MD [facility] [place] [address] PCP - General Family Medicine 12/05/20
[2025-03-03 18:34] LABS: Hematocrit 45.1 % (37.0-47.0); Hemoglobin 14.1 g/dL (12.0-15.0); Mean Corpuscular HGB Conc 31.3 g/dl (32-36); Mean Corpuscular Hemoglobin 29.4 pg (26-34); Mean Corpuscular Volume 94.0 fl (80-100); Platelet Count Result 335 k/mm3 (150-375); Red Blood Count 4.80 M/mm3 (4.2-5.4); White Blood Count 11.8 K/mm3 (4.5-10.0)
[2025-03-03 19:42] LABS: Alanine Aminotransferase 35 U/L (6-35); Albumin Level 4.8 g/dL (3.5-5.1); Alkaline Phosphatase 81 U/L (38-126); Anion Gap 11 mmol/L (4-12); Aspartate Amino Transferase 57 U/L (14-36); Bilirubin,Total 0.3 mg/dL (0.2-1.3); Blood Urea Nitrogen 13 mg/dL (7-17); Calcium 9.7 mg/dL (8.4-10.2); Carbon Dioxide 25 mmol/L (22-30); Chloride 104 mmol/L (98-107); Cholesterol 178 mg/dL (0-200); Estimated Glomerular Filt Rate > 60; Glucose 89 mg/dL (65-110); HDL Direct 44 mg/dL; Sodium 140 mmol/L (137-145); Total Protein 8.3 g/dL (6.3-8.2); Triglycerides 94 mg/dL (<150)
[2025-03-03 19:49] LABS: Potassium 4.0 mmol/L (3.4-5.0)
[2025-03-03 20:13] LABS: Thyroid Stimulating Hormone < 0.015 uIU/mL (0.465-4.680)
== END 2025-03-03 08:19 | disposition home or self-care (01) ==
PROVIDERS: PCP Nurse Practitioner Adult Health; Visit Provider Nurse Practitioner Adult Health
DX: Z00.00 Encounter for general adult medical examination without abnormal findings (principal); Z13.9 Encounter for screening, unspecified; E55.9 Vitamin D deficiency, unspecified
CPT/HCPCS: 36415; 80053; 80061; 82306; 84443; 85027

== ENCOUNTER 2025-03-09 10:28 | Outpatient (CLI) | payer BC, SELFPAY ==
--- OUTSIDE RECORDS SUMMARY | 2025-03-09 10:53 | XMS_ITS | Encounter Summary ---
Author Organization [facility] Address [address] [place] [address] Care Team Providers Care Customer Account Technician Name Role Phone Bryan Whittaker MD Unavailable [phone] Dayna Skaggs APRN-POULTRY HATCHERY SUPERVISOR Primary Care Provider + Encounter Details Date Type Department Care Team (Late st Contact Info) Description 05/30/2022 Lab Requisition [facility] Care DermPath Lab [address] [place] [phone] [place] [address] Social History Tobacco Use Types Packs/Day Years Used Date Smoking Tobacco: Never Assessed Comments Unknown Sex and Gender Information Value Date Recorded Sex Assigned at Not on file Legal Sex Female 12:10 PM RADIOLOGY TRANSCRIPTIONIST Gender Identity Not on file Sexual Orientation Not on file documented as of this encounter Plan of Treatment Not on file documented as of this encounter Procedures Procedure Name Priority Date/Time Associated Diagnosis Comments DERMATOPATHOLOGY Routine 05/29/2022 12:0 0 AM RADIOLOGY TRANSCRIPTIONIST documented in this encounter Results * DERMATOPATHOLOGY (05/29/2022 12:00 AM RADIOLOGY TRANSCRIPTIONIST) Case Report Dermatopathology Report Case: [id number] Authorizing Provider: Lambert Herrera MD Collected: 05/29/2022 12:00 AM Ordering Location: [facility] DermPath Lab Received: 05/30/2022 01:35 PM Pathologist: Starr Villafana MD Specimen: Skin, right cheek 1:08 PM [facility] DERMATOPATHOLOGY LABORATORY Final Diagnosis Specimen A. SKIN, right cheek: VERRUCA VULGARIS WITH ASSOCIATED CHANGES OF PRURIGO NODULARIS (B07.8) 1:08 PM [facility] DERMATOPATHOLOGY LABORATORY at [address] RADIOLOGY TRANSCRIPTIONIST Clinical History R/O BCC, HAK, AK, SCC, ISK 1:08 PM [facility] DERMATOPATHOLOGY LABORATORY Gross Description Specimen A: Received is one formalin filled container labeled with the patient's name and designated right cheek. The specimen consists of a shave biopsy measuring 2r1l6tu. Jar 0. 1:08 PM [facility] DERMATOPATHOLOGY LABORATORY Microscopic Description Specimen A. SKIN, right cheek: There is digitated epidermal hyperplasia, hypergranulosis, vacuolated granular layer cells, and compact hyperorthokeratosis . There is a dome-shaped portion of skin with psoriasiform epidermal hyperplasia, compact hyperkeratosis, and fibrosis of the papillary dermis associated with a superficial perivascular lymphohistiocytic infiltrate. 1:08 PM [facility] DERMATOPATHOLOGY LABORATORY Disclaimer An external and internal positive and negative controls are appropriate for the histochemical, immunohistochemical and immunofluorescence stain(s) in this case (if any), except where stated explicitly. The performance characteristics of the stain(s) cited in this report were developed and its performance characteristic determined by the Dermatopathology Laboratory at [facility], directed by Dr. Nurys Villafana. These tests need not be, and therefore are not, approved by the [place] Food and Drug Administration. The tests are used for clinical purposes. Billing Codes Specimen Charges Stain Charges 47386 1 1:08 PM [facility] DERMATOPATHOLOGY LABORATORY Embedded Images 1:08 PM [facility] DERMATOPATHOLOGY LABORATORY Pathology/Cytolog y TISSUE SPECIMEN FROM SKIN / Unknown 05/29/2022 05/30/2022 1:35 PM RADIOLOGY TRANSCRIPTIONIST us Lambret Herrera MD LAB - PATHOLOGY/CYTOLOGY ORD ERABLES Final Result DERMATOPATHOLOGY LABORATORY [facility] - Department of Dermatology [address] [phone] documented in this encounter Visit Diagnoses Not on filedocumented in this encounter Care Teams Customer Account Technician Relationship Specialty Start Date End Date Dayna Skaggs APRN-SAVAGE [address] [place] [address] [address] [place] [phone] PCP - General Nurse Practitioner 02/25/22 Bryan Whittaker MD Neurology 04/04/11 documented as of this encounter
--- OUTSIDE RECORDS SUMMARY | 2025-03-09 10:53 | XMS_ITS | Clinical Summary ---
Author Organization [facility] Address [address] [place] [address] Care Team Providers Care Senior Hardware Design Engineer Name Role Phone Cherie Noguera MD Primary Care Provider [phone] Allergies Active Allergy Reactions Criticality Noted Date [...] by mouth daily Active cholecalciferol (VITAMIN D-3) 86023 unit capsule Take 5,000 Units by mouth [...] 100 mg by mouth daily 2 Active Hospital, Clinic, or Other Facility Administered Medication Ordered Dose Route Frequency Start Date End Date Status lidocaine (XYLOCAINE) 20 mg/mL (2 %) injection 3 mLIndications:Admi nistration of Local Anesthesia 3 mL One-Time Injection 02/28/2025 02/28/2025 Ended methylPREDNISolone acetate (DEPO-medrol) injection 80 mgIndications:Trau akhil incomplete tear of left rotator cuff, initial encounter,Chronic left shoulder pain 80 mg intra-artic One-Time Injection 02/28/2025 02/28/2025 Ended Active Problems Problem Noted Date Diagnosed Date Right lateral epicondylitis 03/16/2022 Overview (03/16/2022): Added automatically from request for surgery [id number] Cubital tunnel syndrome on right 03/16/2022 Overview (03/16/2022): Added automatically from request for surgery [id number] Medial epicondylitis of right elbow 03/16/2022 Overview (03/16/2022): Added automatically from request for surgery [id number] Itch 10/05/2010 Encounters Date Type Department Care Team Description 02/28/2025 8:30 AM CDT Office Visit [facility] Medical [facility] Orthopedics and Sports Medicine [address] [address] [place] [phone] Roxi Gutiérrez PA Traumatic incomplete tear of left rotator cuff, initial encounter (Primary Dx); Chronic left shoulder pain 02/28/2025 7:37 AM CDT - 02/28/2025 11:59 PM CDT Hospital Encounter [facility] Orthopedics and Sports Medicine [address] [place] [address] [address] [place] [phone] Discharge Disposition: Discharge to home or self care from Last 3 Months Surgical History Surgery Date Site/Laterality Comments AUGMENTATION MAMMOPLASTY 1987 Breast Augmentation AUGMENTATION MAMMOPLASTY 2006 Breast Augmentation BLADDER PLICATION bladder plication HYSTERECTOMY 2004 Hysterectomy BLADDER SURGERY EXPLORATORY LAPAROTOMY endometriosis Medical [...] on file Legal Sex Female 12:21 AM PHP MYSQL WEB DEVELOPER Gender Identity Not on file Sexual Orientation [...] Procedure Name Priority Date/Time Associated Diagnosis Comments [place] ARTHROCENTESIS ASPIR&/INJ MAJOR JT/BURSA W/O US Routine 02/28/2025 8:30 AM CDT Traumatic incomplete tear of left rotator cuff, initial encounter Chronic left shoulder pain XR SHOULDER LEFT 2 OR MORE VIEWS [...] Final Result from Last 3 Months Insurance ANTHEM ACCESS CHOICE [facility] CHOICE PLUS ANTHEM ACCESS CHOICE ANTHEM ACCESS CHOICE Care Teams Senior Hardware Design Engineer Relationship Specialty Start Date End Date Cherie Noguera MD [facility] [address] PCP - General Family Medicine 12/05/20
--- OUTSIDE RECORDS SUMMARY | 2025-03-09 10:53 | XMS_ITS | Clinical Summary ---
Author Organization [facility] Address [address] [facility] [place] [address] Care Team Providers Care Marine Transport Professionals Name Role Phone Bryan Whittaker MD Unavailable [phone] Dayna Skaggs APRN-[facility] Primary Care Provider + Source Comments [facility],non-owned Affiliates and Associated Physician Practices is amultiple site organization consisting of ambulatory clinics and hospital sitesin [place], [place], [place] and [place]. This disclosure is being madepursuant to the Care Everywhere program and may not contain all information available regarding this patient. Last updated 18.[facility] Allergies Active Allergy Reactions Criticality Noted Date [...] on file Legal Sex Female 12:10 PM ACCOUNT SERVICES SPECIALIST Gender Identity Not on file Sexual Orientation [...] this topic Insurance /BLUE BLUE CROSS BLUE [facility] ANTHEM ANTHEM Care Teams Marine Transport Professionals Relationship Specialty Start Date End Date Dayna Skaggs APRN-PRINTED CIRCUIT BOARD DRAFTER [address] [place] [address] PCP - General Nurse Practitioner 02/25/22 Bryan Whittaker MD Neurology 04/04/11
--- OUTSIDE RECORDS SUMMARY | 2025-03-09 10:53 | XMS_ITS | Clinical Summary ---
Author Organization [facility] Address [address] [place] [address] Care Team Providers Care Library Paraprofessional Name Role Phone Unavailable Primary Care Provider [...] mouth daily 30 tablet 5 3 Active amoxicillin-cla vulanate (Augmentin) 500-125 MG per tablet Take 1 tablet by mouth in the morning and 1 tablet in the evening and 1 tablet before bedtime. Do all this for 7 days. 21 tablet 5 03/10/20 25 Active Encounters Date Type Department Care Team Description 03/03/2025 Orders Only [facility] [address] [place] [address] Mando Jefferson MD 02/28/2025 Documentation Only [facility] [address] [place] [address] Mando Jefferson MD 02/25/2025 Orders Only [facility] [address] [place] [address] Mando Jefferson MD Urinary tract infectious [...]
--- OUTSIDE RECORDS SUMMARY | 2025-03-09 10:53 | XMS_ITS | Clinical Summary ---
Author Organization [facility] Address [address] [place] [address] Phone Care Team Providers Care Associate Data Scientist Name Role Phone Provider, None Primary Care [...] age to complete this topic Care Teams Associate Data Scientist Relationship Specialty Start Date End Date Provider, None DILEEP PCP - General 01/05/18
[2025-03-09 19:35] LABS: Free T4 Free Thyroxine 1.14 ng/dL (0.78-2.19)
== END 2025-03-09 10:29 | disposition home or self-care (01) ==
PROVIDERS: PCP Nurse Practitioner Adult Health; Visit Provider Nurse Practitioner Adult Health
DX: R79.89 Other specified abnormal findings of blood chemistry (principal); R94.6 Abnormal results of thyroid function studies
CPT/HCPCS: 36415; 84439; 86376

== ENCOUNTER 2025-03-18 13:32 | Outpatient (CLI) | payer BC, SELFPAY ==
--- OUTSIDE RECORDS SUMMARY | 2025-03-18 13:55 | XMS_ITS | Clinical Summary ---
Author Organization [facility] Address [address] [place] [address] Care Team Providers Care Nuclear Test Technician Name Role Phone Bryan Whittaker MD Unavailable [phone] Dayna Skaggs APRN-PRODUCT DEVELOPMENT MANAGER Primary Care Provider + Source Comments [facility],non-owned Affiliates and Associated Physician Practices is amultiple site organization consisting of ambulatory clinics and hospital sitesin [place], [place], [place] and [place]. This disclosure is being madepursuant to the Care Everywhere program and may not contain all information available regarding this patient. Last updated 18.[facility] Allergies Active Allergy Reactions Criticality Noted Date [...] on file Legal Sex Female 12:10 PM PERFORMANCE MANAGER Gender Identity Not on file Sexual Orientation [...] 01/20/2020 ZOSTER VACCINE (1 of 2) 01/20/2020 DEPRESSION SCREENING 07/14/2024 COVID-19 VACCINE (1 - 2023-2 5 season) 2025 INFLUENZA VACCINE (#1) 2025 HIB VACCINE Aged [...] this topic Insurance /BLUE BLUE CROSS BLUE [facility] ANTHEM ANTHEM Care Teams Nuclear Test Technician Relationship Specialty Start Date End Date Dayna Skaggs APRN-PRODUCT DEVELOPMENT MANAGER [address] [place] [address] PCP - General Nurse Practitioner 02/25/22 Bryan Whittaker MD Neurology 04/04/11
--- OUTSIDE RECORDS SUMMARY | 2025-03-18 13:55 | XMS_ITS | Clinical Summary ---
Author Organization [facility] Address [address] [place] [address] Phone Care Team Providers Care Labor And Delivery Registered Nurse Name Role Phone Provider, None Primary Care [...] 01/20/2020 Zoster Immunization (1 of 2) 01/20/2020 Influenza Immunization (#1) 2025 SARS-COV-2 Immunization ( - season) 2025 08/24/2020, 07/27/2020 Respiratory Syncytial Virus (RSV) Immunization (Adult) (1 [...] age to complete this topic Care Teams Labor And Delivery Registered Nurse Relationship Specialty Start Date End Date Provider, None DILEEP PCP - General 01/05/18
--- OUTSIDE RECORDS SUMMARY | 2025-03-18 13:55 | XMS_ITS | Clinical Summary ---
Author Organization [facility] Address [address] [place] [address] Care Team Providers Care Chemical Lab Supervisor Name Role Phone Unavailable Primary Care Provider [...] 7 days. 21 tablet 5 03/10/20 25 Encounters Date Type Department Care Team Description 03/03/2025 Orders Only [facility] [address] [address] [place] [address] Mando Jefferson MD 02/28/2025 Documentation Only [facility] [address] [place] [phone] Mando Jefferson MD 02/25/2025 Orders Only [facility] [address] [place] [address] Mando Jefferson MD Urinary tract [...]
--- OUTSIDE RECORDS SUMMARY | 2025-03-18 13:55 | XMS_ITS | Clinical Summary ---
Author Organization [facility] Address [address] [place] [address] Care Team Providers Care Field Marketing Director Name Role Phone Cherie Noguera MD Primary Care Provider [phone] Allergies Active Allergy Reactions Criticality Noted Date [...] by mouth daily Active cholecalciferol (VITAMIN D-3) 05755 unit capsule Take 5,000 Units by mouth [...] (03/16/2022): Added automatically from request for surgery [id number] Cubital tunnel syndrome on right 03/16/2022 Overview (03/16/2022): Added automatically from request for surgery [id number] Medial epicondylitis of right elbow 03/16/2022 Overview (03/16/2022): Added automatically from request for surgery [id number] Itch 10/05/2010 Encounters Date Type Department Care Team Description 02/28/2025 8:30 AM CDT Office Visit [facility] [address] [place] [id number] Roxi Gutiérrez PA Traumatic incomplete tear of left rotator cuff, initial encounter (Primary Dx); Chronic left shoulder pain 02/28/2025 7:37 AM CDT - 02/28/2025 11:59 PM CDT Hospital Encounter [facility] [address] [place] [address] [address] [place] [id number] Discharge Disposition: Discharge to home or self [...] on file Legal Sex Female 12:21 AM BACTERIOLOGIST MEDICAL Gender Identity Not on file Sexual Orientation [...] Procedure Name Priority Date/Time Associated Diagnosis Comments ME ARTHROCENTESIS ASPIR&/INJ MAJOR JT/BURSA W/O US Routine [...] Last 3 Months Insurance ANTHEM ACCESS CHOICE [facility] CHOICE PLUS ANTHEM ACCESS CHOICE ANTHEM ACCESS CHOICE Care Teams Field Marketing Director Relationship Specialty Start Date End Date Cherie Noguera MD [facility] [place] [address] PCP - General Family Medicine 12/05/20
--- OUTSIDE RECORDS SUMMARY | 2025-03-18 13:55 | XMS_ITS | Encounter Summary ---
Author Organization [facility] Address [address] [place] [address] Care Team Providers Care Shift Superintendent Caustic Cresylate Name Role Phone Bryan Whittaker MD Unavailable [phone] Dayna Skaggs APRN-SOFT SHOE DANCER Primary Care Provider + Encounter Details Date Type Department Care Team (Late st Contact Info) Description 05/30/2022 Lab Requisition [facility] [address] [place] [id number] [place] [address] Social History Tobacco Use Types Packs/Day Years Used Date Smoking Tobacco: Never Assessed Comments Unknown Sex and Gender Information Value Date Recorded Sex Assigned at Not on file Legal Sex Female 12:10 PM WELLNESS PROGRAM MANAGER Gender Identity Not on file Sexual Orientation Not on file documented as of this encounter Plan of Treatment Not on file documented as of this encounter Procedures Procedure Name Priority Date/Time Associated Diagnosis Comments DERMATOPATHOLOGY Routine 05/29/2022 12:0 0 AM WELLNESS PROGRAM MANAGER documented in this encounter Results * DERMATOPATHOLOGY (05/29/2022 12:00 AM WELLNESS PROGRAM MANAGER) Case Report Dermatopathology Report Case: [id number] Authorizing Provider: Lambert Herrera MD Collected: 05/29/2022 12:00 AM Ordering Location: [facility] Received: 05/30/2022 01:35 PM Pathologist: Starr Villafana MD Specimen: Skin, right cheek 1:08 PM [facility] Final Diagnosis Specimen A. SKIN, right cheek: VERRUCA VULGARIS WITH ASSOCIATED CHANGES OF PRURIGO NODULARIS (B07.8) 1:08 PM [facility] DERMATOP[facility]Y [facility]OR[facility] at [address] WELLNESS PROGRAM MANAGER Clinical History R/O BCC, HAK, AK, SCC, ISK 1:08 PM [facility] Gross Description Specimen A: Received is one formalin filled container labeled with the patient's name and designated right cheek. The specimen consists of a shave biopsy measuring [id number]. Jar 0. 1:08 PM [facility] Microscopic Description Specimen A. SKIN, right cheek: There is digitated epidermal hyperplasia, hypergranulosis, vacuolated granular layer cells, and compact hyperorthokeratosis . There is a dome-shaped portion of skin with psoriasiform epidermal hyperplasia, compact hyperkeratosis, and fibrosis of the papillary dermis associated with a superficial perivascular lymphohistiocytic infiltrate. 1:08 PM [facility] Disclaimer An external and internal positive and negative controls are appropriate for the histochemical, immunohistochemical and immunofluorescence stain(s) in this case (if any), except where stated explicitly. The performance characteristics of the stain(s) cited in this report were developed and its performance characteristic determined by the Dermatopathology Laboratory at [facility], directed by Dr. Nurys Villafana. These tests need not be, and therefore are not, approved by the [place] Food and Drug Administration. The tests are used for clinical purposes. Billing Codes Specimen Charges Stain Charges 76725 1 1:08 PM [facility] Embedded Images 1:08 PM [facility] Pathology/Cytolog y TISSUE SPECIMEN FROM SKIN / Unknown 05/29/2022 05/30/2022 1:35 PM WELLNESS PROGRAM MANAGER us Lambert Herrera MD LAB - PATHOLOGY/CYTOLOGY ORD ERABLES Final Result DERMATOPATHOLOGY LABORATORY [facility] - Department of Dermatology [address], [address] [phone] documented in this encounter Visit Diagnoses Not on filedocumented in this encounter Care Teams Shift Superintendent Caustic Cresylate Relationship Specialty Start Date End Date Dayna Skaggs APRN-SAVAGE [address] [place] [address] [address] [place] [phone] PCP - General Nurse Practitioner 02/25/22 Bryan Whittaker MD Neurology 04/04/11 documented as of this encounter
[2025-03-18 14:13] LABS: Add Urine Microscopic? YES; Appearance Urine Cloudy (Clear); Glucose Urine UA Negative (Negative); Leukocyte Esterase Ur 2+ LEU/UL (Negative); Nitrate Urine Positive (Negative); Non Pathogenic Casts 0-2; Specific Grav Ur 1.023 (1.001-1.035)
== END 2025-03-18 13:33 | disposition home or self-care (01) ==
LOC: ANHLAB 13:32
PROVIDERS: PCP Nurse Practitioner Adult Health; Visit Provider Nurse Practitioner Adult Health
DX: R39.9 Unspecified symptoms and signs involving the genitourinary system (principal)
CPT/HCPCS: 81001; 87086; 87186